=== PATIENT | female | born 1950 | race Caucasian/White ===

== ENCOUNTER 2016-08-02 08:31 | Outpatient (CLI) | payer MEDICARE ==
[2016-08-02 13:54] LABS: ALBUMIN/GLOBULIN RATIO 1.4 (1.0-2.2); BILIRUBIN,TOTAL 0.8 mg/dL (0.2-1.0); BUN - BLOOD UREA NITROGEN 19 mg/dL (6-20); CALCIUM 9.1 mg/dL (8.5-10.3); CARBON DIOXIDE - CO2 27 mmol/L (21-32); CHLORIDE 104 mmol/L (101-111); CHOL/HDL RATIO 3.9 (<4.4); CHOLESTEROL 255 mg/dL; CREATININE 0.8 mg/dL (0.4-1.0); GFR - MDRD 71 (>89); GLUCOSE 101 mg/dL (70-100); HDL CHOLESTEROL 65 mg/dL; LDL/HDL RATIO 2.6 (<4.4); POTASSIUM 3.8 mmol/L (3.5-5.0); SODIUM 139 mmol/L (135-145); TOTAL PROTEIN 6.8 g/dL (6.7-8.2); TRIGLYCERIDES 107 mg/dL; VLDL CHOLESTEROL 21 mg/dL
== END 2016-08-02 08:32 | disposition home or self-care (01) ==
LOC: LAB.WCP 08:31
PROVIDERS: ATTEND Physician Assistant Medical
DX: Z51.81 Encounter for therapeutic drug level monitoring (principal)
CPT/HCPCS: 36415; 80053; 80061

== ENCOUNTER 2017-08-20 08:17 | Outpatient (CLI) | payer MEDICARE ==
[2017-08-20 13:38] LABS: BASOPHILS # (AUTO) 0.1 10^3/uL (0.0-0.1); BASOPHILS % (AUTO) 0.8 %; EOSINOPHILS # (AUTO) 0.2 10^3/uL (0.0-0.7); EOSINOPHILS % (AUTO) 3.4 %; HGB - HEMOGLOBIN 12.6 g/dL (12.0-16.0); LYMPHOCYTES % (AUTO) 44.4 %; MEAN CORPUSCULAR HGB CONC 33.3 g/dL (32.0-36.0); MEAN CORPUSCULAR VOLUME 90.1 fL (81.0-99.0); MEAN PLATELET VOLUME 9.9 fL (7.9-10.8); MONOCYTES # (AUTO) 0.4 10^3/uL (0.0-1.0); MONOCYTES % (AUTO) 6.6 %; NEUTROPHILS # (AUTO) 3.1 10^3/uL (1.5-6.6); NEUTROPHILS % (AUTO) 44.8 %; PLT - PLATELET COUNT 205 10^3/uL (130-450); WHITE BLOOD COUNT 6.9 x10^3/uL (4.8-10.8)
[2017-08-20 14:10] LABS: ALBUMIN 3.4 g/dL (3.2-5.5); ALBUMIN/GLOBULIN RATIO 1.1 (1.0-2.2); ALKALINE PHOSPHATASE 83 IU/L (42-121); ALT ALANINE AMINOTRANSFERASE 19 IU/L (10-60); AST ASPARTATE AMINOTRANSFERASE 20 IU/L (10-42); BILIRUBIN,TOTAL 0.7 mg/dL (0.2-1.0); BUN - BLOOD UREA NITROGEN 23 mg/dL (6-20); CALCIUM 8.9 mg/dL (8.5-10.3); CARBON DIOXIDE - CO2 29 mmol/L (21-32); CHLORIDE 105 mmol/L (101-111); CHOL/HDL RATIO 3.8 (<4.4); CHOLESTEROL 224 mg/dL; CREATININE 0.7 mg/dL (0.4-1.0); GFR - MDRD 83 (>89); GLUCOSE 96 mg/dL (70-100); HDL CHOLESTEROL 59 mg/dL; LDL CHOLESTEROL,CALCULATED 150 mg/dL; LDL/HDL RATIO 2.5 (<4.4); SODIUM 141 mmol/L (135-145); TOTAL PROTEIN 6.5 g/dL (6.7-8.2); VLDL CHOLESTEROL 15 mg/dL
== END 2017-08-20 08:18 | disposition home or self-care (01) ==
LOC: LAB.WCP 08:17
PROVIDERS: ATTEND Physician Assistant
DX: Z51.81 Encounter for therapeutic drug level monitoring (principal); E78.5 Hyperlipidemia, unspecified
CPT/HCPCS: 36415; 80053; 80061; 83721; 85025

== ENCOUNTER 2017-10-24 08:00 | Outpatient (CLI) | payer MEDICARE ==
[2017-10-24 12:43] LABS: CHOL/HDL RATIO 4.1 (<4.4); CHOLESTEROL 257 mg/dL; HDL CHOLESTEROL 63 mg/dL; LDL CHOLESTEROL,CALCULATED 179 mg/dL; LDL/HDL RATIO 2.8 (<4.4); VLDL CHOLESTEROL 15 mg/dL
== END 2017-10-24 08:01 ==
LOC: LAB.WCP 08:00
PROVIDERS: ATTEND Physician Assistant
DX: E78.5 Hyperlipidemia, unspecified (principal)
CPT/HCPCS: 36415; 80061; 83721

== ENCOUNTER 2018-05-30 16:31 | Outpatient (CLI) | payer MEDICARE | END 2018-05-30 16:32 | disposition home or self-care (01) | LOC: DI 16:31 | DX: Z12.31 Encounter for screening mammogram for malignant neoplasm of breast (principal) | CPT/HCPCS: 77063; 77067 ==

== ENCOUNTER 2018-07-08 08:00 | Outpatient (CLI) | payer MEDICARE ==
[2018-07-08 13:04] LABS: CHOL/HDL RATIO 4.2 (<4.4); CHOLESTEROL 276 mg/dL; HDL CHOLESTEROL 66 mg/dL; LDL CHOLESTEROL,CALCULATED 191 mg/dL; LDL/HDL RATIO 2.9 (<4.4); VLDL CHOLESTEROL 19 mg/dL
== END 2018-07-08 23:59 | disposition home or self-care (01) ==
LOC: LAB.WCP 08:00
PROVIDERS: ATTEND Physician Assistant
DX: E78.5 Hyperlipidemia, unspecified (principal)
CPT/HCPCS: 36415; 80061; 83721

== ENCOUNTER 2018-09-10 07:14 | Outpatient (CLI) | payer MEDICARE ==
--- NOTE | 2018-09-10 17:39 | MRI Report ---
Reason: INTERNAL DERANGEMENT OF RT KNEE Procedure Date: 09/10/2018 Accession Number: [id number] / [id number] Procedure: MRI - Knee RT W/O CPT Code: FULL RESULT: EXAM: RIGHT KNEE MRI WITHOUT CONTRAST EXAM DATE: 09/10/2018 07:41 AM. CLINICAL HISTORY: Knee pain. No trauma. COMPARISON: KNEE 2 VIEW RT 09/02/2018 3:52 PM. TECHNIQUE: Multiplanar, multisequence T1-weighted and fluid-sensitive sequences of the knee without contrast. Other: None. FINDINGS: Bones: Small osteophytes in all 3 compartments. Mild subcortical edema in the medial femoral condyle, related to chondromalacia. Articular Cartilage: Grade III and IV chondromalacia medial compartment. Patchy grade II chondromalacia lateral compartment. Grade II chondromalacia patella. Medial Meniscus: 1 cm radial tear at the posterior horn root with 0.3 cm distraction. Lateral Meniscus: The lateral meniscus is intact. Cruciate Ligaments: The anterior and posterior cruciate ligaments are intact. Collateral Ligaments: The medial collateral and lateral collateral ligamentous structures are intact. Tendons: The quadriceps, patellar, semimembranosus, and popliteus tendons are unremarkable. Musculature: No edema or fatty atrophy. Other: Small joint effusion. No popliteal cyst. No loose bodies. The medial and lateral retinacula are intact. Mild anterior soft tissue edema. IMPRESSION: 1. Moderate 3 compartment degenerative joint disease, most severe in the medial compartment. 2. Radial tear posterior horn root medial meniscus. 3. Small joint effusion. RADIA
== END 2018-09-10 07:15 | disposition home or self-care (01) ==
LOC: DI 07:14
PROVIDERS: ATTEND Physician Assistant
DX: M17.11 Unilateral primary osteoarthritis, right knee (principal); M23.221 Derangement of posterior horn of medial meniscus due to old tear or injury, right knee

== ENCOUNTER 2018-11-14 11:23 | Emergency (ER) | payer MEDICARE ==
[2018-11-14] MEDS ORDERED: MORPHINE 10 MG/ML VIAL IVP STA (12:31)
[2018-11-14] MEDS ORDERED: SODIUM CHLORIDE 0.9% 1,000 ML IV STA (12:31)
[2018-11-14] MEDS ORDERED: ONDANSETRON 4 MG/2 ML VIAL IVP STA (12:31)
--- NOTE | 2018-11-14 12:34 | ED Physician Documentation ---
History of Present Illness - Stated complaint Stated Complaint: ABD/BACK PX - Chief complaint Chief Complaint: Abd Pain - Additonal information Additional information: This is a 68-year-old female with a history of hyperlipidemia, denies other medical history, who presents with acute onset of abdominal pain and her suprapubic region radiating to her left flank that began 2 hours ago. Patient states this began in the absence of any known inciting factors. She denies any changes in her bowel movements. She has had vomiting, this was nonbloody and nonbilious. She has not noticed any blood in her stool. She denies fever. She does have some chills. She states the pain is severe, unrelenting, and does not seem to be affected by movements. She has never had a kidney stone or similar symptoms in the past. Review of Systems Constitutional: denies: Fever Cardiac: denies: Chest pain / pressure Respiratory: denies: Dyspnea GI: reports: Abdominal Pain, Nausea, Vomiting : denies: Dysuria, Hematuria Skin: denies: Rash Musculoskeletal: denies: Neck pain Neurologic: denies: Generalized weakness Immunocompromised: denies: Immunocompromised PD PAST MEDICAL HISTORY - Past Medical History Cardiovascular: High cholesterol - Allergies Allergies/Adverse Reactions: Allergies Allergy/AdvReac Type Severity Reaction Status Date / Time No Known Drug Allergies Allergy Verified 11/14/18 11:49 - Living Situation Living Situation: reports: With spouse/s.o. - Social History Does the pt have substance abuse?: No - Family History Family history: reports: Non contributory PD ED PE NORMAL - Vitals Vital signs reviewed: Yes - General General: Alert and oriented X 3, Other (Appears extremely uncomfortable) - HEENT HEENT: PERRL - Neck Neck: Supple, no meningeal sign - Cardiac Cardiac: RRR - Respiratory Respiratory: No respiratory distress, Clear bilaterally - Abdomen Abdomen: Other (Soft, tender in the left lower quadrant and left flank. No guarding. No right upper quadrant or right lower quadrant pain.) - Derm Derm: Warm and dry - Extremities Extremities: No deformity - Neuro Neuro: Alert and oriented X 3 - Psych Psych: Normal mood, Normal affect Results - Vitals Vitals: Vital Signs - 24 hr 11/14/18 11/14/18 11/14/18 11:46 15:44 18:04 Temperature 36.4 C L 36.6 C Heart Rate 69 68 66 Respiratory 18 14 16 Rate Blood Pressure 148/75 H 126/62 139/68 H O2 Saturation 100 98 99 11/14/18 11/14/18 20:31 22:17 Temperature 36.8 C 36.2 C L Heart Rate 66 86 Respiratory 16 20 Rate Blood Pressure 152/77 H 152/65 H O2 Saturation 100 98 Oxygen O2 Source Room air - Labs Labs: Laboratory Tests 11/14/18 11/14/18 11/14/18 12:31 12:31 12:40 WBC 9.6 RBC 4.13 L Hgb 12.3 Hct 37.3 MCV 90.3 MCH 29.8 MCHC 33.0 RDW 12.0 Plt Count 206 MPV 10.5 Neut # (Auto) 7.7 H Lymph # (Auto) 1.5 [place] # (Auto) 0.3 Eos # (Auto) 0.1 Baso # (Auto) 0.0 Absolute Nucleated RBC 0.00 Nucleated RBC % 0.0 Sodium 141 Potassium 3.8 Chloride 105 Carbon Dioxide 28 Anion Gap 8.0 BUN 20 Creatinine 0.8 Estimated GFR (MDRD) 71 L Glucose 126 H Calcium 9.2 Total Bilirubin 0.5 AST 20 ALT 16 Alkaline Phosphatase 89 Total Protein 6.9 Albumin 3.9 Globulin 3.0 Albumin/Globulin Ratio 1.3 Lipase 22 Serum HCG, Qual NEGATIVE Urine Color Urine Clarity Urine pH Ur Specific Fiatt Urine Protein Urine Glucose (UA) Urine Ketones Urine Occult Blood Urine Nitrite Urine Bilirubin Urine Urobilinogen Ur Leukocyte Esterase Urine RBC Urine WBC Ur Squamous Epith Cells Urine Bacteria Ur Microscopic Review Urine Culture Comments 11/14/18 16:48 WBC RBC Hgb Hct MCV MCH MCHC RDW Plt Count MPV Neut # (Auto) Lymph # (Auto) [place] # (Auto) Eos # (Auto) Baso # (Auto) Absolute Nucleated RBC Nucleated RBC % Sodium Potassium Chloride Carbon Dioxide Anion Gap BUN Creatinine Estimated GFR (MDRD) Glucose Calcium Total Bilirubin AST ALT Alkaline Phosphatase Total Protein Albumin Globulin Albumin/Globulin Ratio Lipase Serum HCG, Qual Urine Color YELLOW Urine Clarity CLEAR Urine pH 6.5 Ur Specific Fiatt 1.010 Urine Protein NEGATIVE Urine Glucose (UA) NEGATIVE Urine Ketones NEGATIVE Urine Occult Blood LARGE H Urine Nitrite NEGATIVE Urine Bilirubin NEGATIVE Urine Urobilinogen 0.2 (NORMAL) Ur Leukocyte Esterase NEGATIVE Urine RBC TNTC H Urine WBC 0-3 Ur Squamous Epith Cells NONE SEEN Urine Bacteria None Seen Ur Microscopic Review INDICATED Urine Culture Comments NOT INDICATED - Rads (name of study) CT abd/pelvis Radiology: Other (Metal structure at posterior uterus without signs of inflammation which is likely lost IUD, no other acute abnormality to explain her pain) PD MEDICAL DECISION MAKING - ED course Complexity details: considered differential (Nephrolithiasis, pyelonephritis, PUD, panreatitis, biliary colic, AAA, obstruction) ED course: Pt is very uncomfortable on my evaluation, IV inserted, fluids, zofran, and morphine given. Labs are unremarkable. Vital signs are stable. CT was ordered but our CT scanner was down and patient waited several hours to obtain a CT scan from [facility]. During this time her pain completely resolved. CT shows a lost IUD without inflammation which patient is already aware of, no other acute abnormality. She remains asymptomatic without recurrence of her pain. Her urine shows many RBCS. Given her symptoms and their resolution, as well as her UA, she like passed a kidney stone during her stay today. She is well appearing with a benign abdomen and is eager to go home. I discussed return precuations and PCP follow up, and patient was discharged in the care of her . Departure - Departure Disposition: 01 Home, Self Care Clinical Impression: Abdominal pain Qualifiers: Abdominal location: unspecified location Qualified Code(s): R10.9 - Unspecified abdominal pain Condition: Good Follow-Up: Leanne Ray PA [Primary Care Provider] - (At your next appt please consider a urinalysis to check for microscopic hematuria) Comments: You were seen today for left-sided abdominal pain. I have a high suspicion that you had a kidney stone which passed. Your CT scan does not show signs of a kidney stone in the ureter (connecting tube) at this time, it does show a metallic structure in the posterior of your uterus which is likely your missing IUD. If you develop recurrent abdominal pain, persistent vomiting, or other concerning symptoms please return to the emergency department. Otherwise please follow-up with your primary care provider. It is a good idea to get a repeat urine test to make sure you do not have persistent blood in your urine at your next visit with your primary care provider. Discharge Date/Time: 11/14/18 22:28
[2018-11-14 12:50] LABS: BASOPHILS % (AUTO) 0.2 %; EOSINOPHILS # (AUTO) 0.1 10^3/uL (0.0-0.7); EOSINOPHILS % (AUTO) 0.5 %; HGB - HEMOGLOBIN 12.3 g/dL (12.0-16.0); LYMPHOCYTES # (AUTO) 1.5 10^3/uL (1.5-3.5); MEAN CORPUSCULAR HEMOGLOBIN 29.8 pg (27.0-31.0); MEAN CORPUSCULAR VOLUME 90.3 fL (81.0-99.0); MEAN PLATELET VOLUME 10.5 fL (7.9-10.8); MONOCYTES # (AUTO) 0.3 10^3/uL (0.0-1.0); MONOCYTES % (AUTO) 3.1 %; NEUTROPHILS # (AUTO) 7.7 10^3/uL (1.5-6.6); NEUTROPHILS % (AUTO) 79.8 %; PLT - PLATELET COUNT 206 10^3/uL (130-450); RED BLOOD COUNT 4.13 10^6/uL (4.20-5.40); WHITE BLOOD COUNT 9.6 x10^3/uL (4.8-10.8)
[2018-11-14 13:11] LABS: ALBUMIN 3.9 g/dL (3.2-5.5); ALBUMIN/GLOBULIN RATIO 1.3 (1.0-2.2); BILIRUBIN,TOTAL 0.5 mg/dL (0.2-1.0); CALCIUM 9.2 mg/dL (8.5-10.3); CREATININE 0.8 mg/dL (0.4-1.0); TOTAL PROTEIN 6.9 g/dL (6.7-8.2)
[2018-11-14 13:18] LABS: HCG,QUALITATIVE BLOOD NEGATIVE
[2018-11-14 17:02] LABS: BILIRUBIN,URINE NEGATIVE (NEGATIVE); GLUCOSE, URINE (UA) NEGATIVE (NEGATIVE); KETONES,URINE (UA) NEGATIVE (NEGATIVE); LEUKOCYTE ESTERASE, URINE NEGATIVE (NEGATIVE); NITRITE,URINE NEGATIVE (NEGATIVE); OCCULT BLOOD,URINE LARGE (NEGATIVE); PH,URINE 6.5 PH (5.0-7.5); PROTEIN,URINE NEGATIVE (NEGATIVE); UROBILINOGEN,URINE 0.2 (NORMAL) E.U./dL (NORMAL)
[2018-11-14 17:03] LABS: CLARITY,URINE CLEAR (CLEAR)
[2018-11-14 17:10] LABS: BACTERIA,URINE None Seen /HPF (None Seen); RBC,URINE TNTC /HPF (0-5); SQUAMOUS EPITHELIAL CELL,UR NONE SEEN (<= Few)
[2018-11-14 22:18] VITALS: BP 152/65
== END 2018-11-14 22:28 | disposition home or self-care (01) ==
LOC: ED 11:23
DX: R10.9 Unspecified abdominal pain (principal)
CPT/HCPCS: 36415; 74177; 80053; 81001; 81003; 83690; 84703; 85025; 87086; 96361; 96374; 99284

== ENCOUNTER 2019-01-16 07:00 | Outpatient (CLI) | payer MEDICARE ==
[2019-01-16 19:43] LABS: CHOL/HDL RATIO 4.5 (<4.4); CHOLESTEROL 277 mg/dL; HDL CHOLESTEROL 62 mg/dL; LDL CHOLESTEROL,CALCULATED 191 mg/dL; LDL/HDL RATIO 3.1 (<4.4); VLDL CHOLESTEROL 24 mg/dL
== END 2019-01-16 23:59 | disposition home or self-care (01) ==
LOC: LAB.WCP 07:00
PROVIDERS: ATTEND Physician Assistant
DX: E78.5 Hyperlipidemia, unspecified (principal)
CPT/HCPCS: 36415; 80061; 83721

== ENCOUNTER 2021-05-30 12:06 | Outpatient (CLI) | payer MEDICARE ==
--- NOTE | 2021-05-30 18:01 | XRAY Report ---
PROCEDURE: Shoulder 3 View LT INDICATIONS: SHOULDER PAIN TECHNIQUE: 4 views of the shoulder were acquired. COMPARISON: None. FINDINGS: Bones: No fractures or dislocations. No suspicious bony lesions. Visualized ribs appear intact. Mi ld glenohumeral and acromioclavicular joint osteoarthritis. Soft tissues: Calcification adjacent to the lateral margin of the humeral head.. IMPRESSION: 1. Osteoarthritis. 2. Rotator cuff calcific tendinitis. Reviewed by: Liz Dinero MD, PhD on 05/30/2021 5:59 PM PDT Approved by: Liz Dinero MD, PhD on 05/30/2021 5:59 PM PDT Station ID: [id number]
== END 2021-05-30 23:59 | disposition home or self-care (01) ==
LOC: DI.WOS 12:06
PROVIDERS: ATTEND Physician Assistant
DX: M19.012 Primary osteoarthritis, left shoulder (principal); M75.32 Calcific tendinitis of left shoulder

== ENCOUNTER 2023-10-25 07:23 | Day surgery (SDC) | payer MEDICARE ==
[2023-10-25] MEDS: LACTATED RINGERS 1,000 ML IV ONE (07:25)
[2023-10-25] MEDS: PHENYLEPHRINE 2.5% OPHTH 2 ML DROPS ONE (07:45)
[2023-10-25] MEDS: KETOROLAC TROMETHAMINE 0.5% OPHTH DROPS 5 ML ONE (07:45)
[2023-10-25] MEDS: PROPARACAINE 0.5% OPHTH DROPS 15 ML ONE (07:45)
[2023-10-25] MEDS: CYCLOPENTOLATE 1% OPHTH DROPS 2 ML ONE (07:45)
[2023-10-25] MEDS ORDERED: MIDAZOLAM 2 MG/2 ML VIAL ONE ×2 (08:22→09:03)
[2023-10-25] MEDS ORDERED: TIMOLOL 0.5% OPHTH DROPS ONE (08:35)
[2023-10-25] MEDS ORDERED: TRIAMCIN/MOXIFLOX OPHTHALMIC 0.6 ML VIAL IO ONE (08:35)
[2023-10-25] MEDS ORDERED: BRIMONIDINE 0.2% OPHTH DROPS 5 ML ONE (08:35)
[2023-10-25] MEDS ORDERED: EPINEPHrine 1 MG/ML AMP ONE (08:35)
[2023-10-25] MEDS ORDERED: BSS/LIDOCAINE/EPINEPHRINE 1 ML VIAL ONE (08:35)
--- NOTE | 2023-10-25 08:45 | ANESTHESIA ---
Pre-Anesthesia VS, & Labs - Diagnosis L cataract - Procedure L PhacoIOL Vital Signs: Temp Pulse Resp BP Pulse Ox O2 Flow Rate 36.4 C L 69 14 149/75 H 98 10/25/23 07:46 10/25/23 07:46 10/25/23 07:46 10/25/23 07:46 10/25/23 07:46 Height: 5 ft 6 in Weight (kg): 67 kg Body Mass Index: 23.8 BMI Classification: Normal - NPO >8 hours - Is Patient ?: No Home Medications and Allergies Home Medications: Ambulatory Orders Losartan [Cozaar] 25 mg PO DAILY 10/24/23 Magnesium Oxide [Magnesium] 400 mg PO DAILY 10/24/23 Riboflavin (Vitamin B2) [Vitamin B2] 400 mg PO DAILY 10/25/23 Losartan [Cozaar] 25 mg PO DAILY 10/24/23 Magnesium Oxide [Magnesium] 400 mg PO DAILY 10/24/23 Riboflavin (Vitamin B2) [Vitamin B2] 400 mg PO DAILY 10/25/23 Allergies/Adverse Reactions: Allergies Allergy/AdvReac Type Severity Reaction Status Date / Time No Known Drug Allergies Allergy Verified 10/25/23 07:45 Anes History & Medical History - Anesthetic History Anesthesia Complications: reports: No previous complications Family history of Anesthesia Complications: Denies Family history of Malignant Hyperthermia: Denies - Medical History Cardiovascular: reports: Hypertension Pulmonary: reports: None Gastrointestinal: reports: GERD Urinary: reports: None Musculoskeletal: reports: Other Endocrine/Autoimmune: reports: None Skin: reports: None Smoking Status: Never smoker Psychosocial: reports: No issues indicated - Surgical History Gynecologic: reports: Other Orthopedic: reports: Other Exam General: Alert, Oriented x3, Cooperative Dental: WNL Mouth Openin Fingerbreadth Neck Mobility: Normal Mallampati classification: II Thyromental Distance: 4-6 cm Respiratory: Lungs clear Cardiovascular: Regular rate Plan Anesthesia Type: MAC Consent for Procedure(s) Verified and Reviewed: Yes Code Status: Attempt Resuscitation ASA classification: 2-Mild systemic disease Is this case an emergency?: No
[2023-10-25] MEDS: EPINEPHrine 1 MG/ML AMP IR ONE (08:55)
[2023-10-25] MEDS: BSS/LIDOCAINE/EPINEPHRINE 1 ML SYRINGE IO ONE (08:55)
[2023-10-25] MEDS: TIMOLOL 0.5% OPHTH DROPS OPTH ONE (08:55)
[2023-10-25] MEDS: TRIAMCIN/MOXIFLOX OPHTHALMIC 0.6 ML VIAL IO ONE (08:55)
[2023-10-25] MEDS: BRIMONIDINE 0.2% OPHTH DROPS 5 ML OPTH ONE (08:55)
[2023-10-25] MEDS: VANCOMYCIN OPHTH (TOPICAL) 10 MG/ML SYRINGE TOP ONE (08:56)
[2023-10-25] MEDS: PROPARACAINE 0.5% OPHTH DROPS 15 ML LEFTEYE ONE (08:56)
[2023-10-25] MEDS: LACTATED RINGERS 950 ML IV ONE (09:18)
--- NOTE | 2023-10-25 09:28 | OPERATIVE REPORT ---
Operative Report - Other Other Information/Narrative: Date of Surgery: 10/25/23 Preop Dx: Visually significant cataract left eye. This was the first cataract surgery. Postop Dx: Same Procedure: Phacoemulsification with posterior chamber intraocular lens implant left eye Surgeon: Dr. Bong West Anesthesia: Monitored anesthesia care Complications: None Operative Indications: This is a 73-year-old F with progressive vision loss in the left eye due to 2+ nuclear sclerotic and 1-2+ posterior subcapsular cataract. Best corrected visual acuity was 20/30 with glare to 20/100 vision in the left eye. Indications for surgery were: - Overall decrease in vision - Difficulty reading - Difficulty seeing words, closed captions, or game scores on TV - Difficulty seeing street signs - Difficulty driving in low light or at night - Difficulty driving at night because of headlights from other vehicles - Difficulty with glare or bright lights in any situation The patient was consented at length concerning the risks and benefits of cataract surgery after which the patient expressed a desire to proceed with surgery. Operative Procedure: The patient was taken into OR#3 and placed under monitored anesthesia care. A surgical time-out was conducted confirming correct patient, correct procedure, and correct surgical site. The patient was given topical anesthesia and then prepped and draped in the usual sterile fashion. The eye was entered at the 6 and 3 oclock positions. Intracameral Shugarcaine was injected into the anterior chamber followed by a dispersive viscoelastic. A continuous-tear curvilinear capsulorhexis was performed. The nucleus was hydrodissected and phacoemulsified. The cortex was evacuated using automated infusion and aspiration. A cohesive viscoelastic was injected into the capsular bag and a 21.5 diopter intraocular lens was inserted into the bag. Infusion and aspiration were used to evacuate the viscoelastic materials from the eye. The wounds were hydrated and the eye inflated to physiologic pressure using balanced salt solution. Approximately 0.25ml of a mixture of triamcinolone and moxifloxacin was injected trans-sclerally into the vitreous in the inferotemporal quadrant using a 30 gauge cannula. An additional 0.25ml of a mixture of triamcinolone and moxifloxacin was injected subconjunctivally in the superior quadrant for infection and inflammation prophylaxis. Wound integrity was checked with Weck-Berta sponges. The patient was taken from the operating room in good condition and given post-op instructions.
[2023-10-25 09:37] VITALS: BP 142/63; O2SAT 100
--- NOTE | 2023-10-25 09:54 | ANESTHESIA POST OP EVALUATION ---
Anesthesia Post Eval - Post Anesthesia Eval Vitals: Last Vital Signs Temp 36.2 C L 10/25/23 09:18 Pulse 76 10/25/23 09:35 Resp 18 10/25/23 09:35 BP 142/63 H 10/25/23 09:35 Pulse Ox 100 10/25/23 09:35 O2 Flow Rate CV Function Including HR & BP: Stable Pain Control: Satisfactory Nausea & Vomiting: Negative Mental Status: Baseline Respiratory Status: Airway Patent Hydration Status: Satisfactory Anesthesia Complications: None
== END 2023-10-25 07:24 | disposition home or self-care (01) ==
LOC: SDS 07:23
PROVIDERS: ATTEND Ophthalmology
DX: H25.812 Combined forms of age-related cataract, left eye (principal)
CPT/HCPCS: 66984; A9270; J3490; J7120